=== PATIENT | male | born 1975 | race Caucasian/White ===

== ENCOUNTER 2018-02-28 09:05 | Emergency (ER) | payer OTHER ==
[2018-02-28] MEDS: predniSONE 20 MG TAB PO (09:53)
[2018-02-28] MEDS: KETOROLAC 30 MG INJ IM (09:54)
== END 2018-02-28 11:25 | disposition home or self-care (01) ==
LOC: FTE 09:05
DX: M54.42 Lumbago with sciatica, left side (principal); M51.37 Other intervertebral disc degeneration, lumbosacral region; I10 Essential (primary) hypertension; F17.210 Nicotine dependence, cigarettes, uncomplicated
CPT/HCPCS: 72131; 96372; 99285-25